=== PATIENT | female | born 1990 | race African-American/Black ===

== ENCOUNTER 2018-01-18 18:23 | Emergency (ER) | payer MEDICAID ==
[~2018-01-18] VITALS: Ht 167.6 cm; Wt 136.4 kg
[2018-01-18 18:29] VITALS: Ht 167.6 cm; Wt 136.4 kg
[2018-01-18] MEDS ORDERED: SUMATRIPTAN SUC25 MG PO (18:58)
[2018-01-18 19:42] VITALS: BP 145/77
== END 2018-01-18 19:41 | disposition home or self-care (01) ==
LOC: D.ER 18:23
DX: G43.909 Migraine, unspecified, not intractable, without status migrainosus (principal)

== ENCOUNTER 2018-03-29 15:19 | Emergency (ER) | payer MEDICAID ==
[~2018-03-29] VITALS: Ht 167.6 cm; Wt 145.1 kg
[~2018-03-29 15:19] MED LIST: SUMATRIPTAN SUC25 MG PO
[2018-03-29 15:29] VITALS: BP 144/88; Ht 167.6 cm; Wt 145.1 kg
[2018-03-29] MEDS ORDERED: ROBAXIN500 MG PO (16:30)
[2018-03-29] MEDS ORDERED: MEDROL DOSE PACK4 MG PO (16:30)
== END 2018-03-29 17:01 | disposition home or self-care (01) ==
LOC: D.ER 15:19
DX: T78.40XA Allergy, unspecified, initial encounter (principal); X58.XXXA Exposure to other specified factors, initial encounter; M54.5 Low back pain; F17.200 Nicotine dependence, unspecified, uncomplicated

== ENCOUNTER 2018-06-29 13:31 | Emergency (ER) | payer MEDICAID ==
[~2018-06-29] VITALS: Ht 167.6 cm; Wt 145.5 kg
[~2018-06-29 13:31] MED LIST changes: +MEDROL DOSE PACK4 MG PO; +ROBAXIN500 MG PO
[2018-06-29 13:41] VITALS: Ht 167.6 cm; Wt 145.5 kg
[2018-06-29] MEDS ORDERED: TESSALON PERLE100 MG PO (16:41)
[2018-06-29] MEDS ORDERED: MONODOX100 MG PO (16:41)
[2018-06-29] MEDS ORDERED: VENTOLIN HFA18 GM INH (16:41)
[2018-06-29 17:09] VITALS: BP 135/82
== END 2018-06-29 17:09 | disposition home or self-care (01) ==
LOC: D.ER 13:31
DX: J40 Bronchitis, not specified as acute or chronic (principal); J01.90 Acute sinusitis, unspecified; R05 Cough; R09.89 Other specified symptoms and signs involving the circulatory and respiratory systems; J02.9 Acute pharyngitis, unspecified; M79.18 Myalgia, other site; F17.200 Nicotine dependence, unspecified, uncomplicated

== ENCOUNTER 2018-07-03 22:13 | Emergency (ER) | payer MEDICAID ==
[~2018-07-03] VITALS: Ht 167.6 cm; Wt 145.5 kg
[~2018-07-03 22:13] MED LIST changes: +MONODOX100 MG PO; +TESSALON PERLE100 MG PO; +VENTOLIN HFA18 GM INH
[2018-07-03 22:20] VITALS: Ht 167.6 cm; Wt 145.5 kg
[2018-07-03] MEDS ORDERED: VENTOLIN HFA18 GM INH (23:06)
[2018-07-03] MEDS ORDERED: OMNICEF300 MG PO (23:06)
[2018-07-03] MEDS ORDERED: PHENERGAN DM SYR5 ML PO (23:06)
[2018-07-03] MEDS ORDERED: TAMIFLU75 MG PO (23:07)
[2018-07-03 23:51] VITALS: BP 146/82
== END 2018-07-03 23:52 | disposition home or self-care (01) ==
LOC: D.ER 22:13
DX: R50.9 Fever, unspecified (principal); M79.18 Myalgia, other site; H66.92 Otitis media, unspecified, left ear; R05 Cough; J02.9 Acute pharyngitis, unspecified; R07.9 Chest pain, unspecified

== ENCOUNTER 2018-12-28 09:11 | Emergency (ER) | payer OTHER ==
[~2018-12-28] VITALS: Ht 167.6 cm; Wt 134.1 kg
[~2018-12-28 09:11] MED LIST changes: +OMNICEF300 MG PO; +PHENERGAN DM SYR5 ML PO; +TAMIFLU75 MG PO
[2018-12-28 09:31] VITALS: BP 122/82; Ht 167.6 cm; Wt 134.1 kg
[2018-12-28] MEDS ORDERED: CYCLOBENZAPRINE10 MG PO (10:27)
[2018-12-28] MEDS ORDERED: IBUPROFEN800 MG PO (10:27)
== END 2018-12-28 11:12 | disposition home or self-care (01) ==
LOC: D.ER 09:11
DX: S39.012A Strain of muscle, fascia and tendon of lower back, initial encounter (principal); X50.0XXA Overexertion from strenuous movement or load, initial encounter; Y92.89 Other specified places as the place of occurrence of the external cause; M62.838 Other muscle spasm

== ENCOUNTER 2019-12-22 07:20 | Emergency (ER) | payer OTHER ==
[~2019-12-22] VITALS: Ht 167.6 cm; Wt 122.3 kg
[~2019-12-22 07:20] MED LIST changes: +CYCLOBENZAPRINE10 MG PO; +IBUPROFEN800 MG PO; +PEPCID AC20 MG PO
[2019-12-22 07:26] VITALS: Ht 167.6 cm; Wt 122.3 kg
[2019-12-22] MEDS ORDERED: ULTRAM50 MG PO (07:40)
[2019-12-22] MEDS ORDERED: NAPROSYN500 MG PO (07:40)
[2019-12-22 07:47] VITALS: BP 148/80
== END 2019-12-22 07:48 | disposition home or self-care (01) ==
LOC: D.ER 07:20
DX: G89.29 Other chronic pain (principal); M54.9 Dorsalgia, unspecified; M54.2 Cervicalgia

== ENCOUNTER 2020-01-12 17:16 | Day surgery (SDC) | payer OTHER ==
[~2020-01-12] VITALS: Ht 167.6 cm; Wt 117.9 kg
[~2020-01-12 17:16] MED LIST changes: +NAPROSYN500 MG PO; +ULTRAM50 MG PO
[2020-01-12 18:03] LABS: HCG URINE NEGATIVE (NEGATIVE)
[2020-01-12 18:05] LABS: BILIRUBIN NEGATIVE (NEGATIVE); GLUCOSE NEGATIVE (NEGATIVE); KETONE NEGATIVE (NEGATIVE); NITRITE NEGATIVE (NEGATIVE); UROBILINOGEN NORMAL (NORMAL)
[2020-01-12 18:06] LABS: BACTERIA FEW /hpf (NEGATIVE); EPITHELIAL CELLS OCC /hpf (0-5); WHITE CELLS - URINE 0-5 /hpf (NEGATIVE)
[2020-01-12 18:29] LABS: BASOPHILS 0.4 % (0-2); EOSINOPHILS 1.1 % (0-7); HEMATOCRIT 32.7 % (36.0-48.0); HEMOGLOBIN 9.8 g/dL (12-16); LYMPHOCYTES 40.7 % (15-50); MCH 21.9 pg (26.0-34.0); MCV 73.2 fL (80.0-100.0); MEAN PLATELET VOLUME 9.6 fL (7.4-10.4); MONOCYTES 10.1 % (2-11); NEUTROPHILS 47.7 % (40-80); PLATELET COUNT 314 10x3/uL (130-400); RBC 4.47 10x6/uL (4.00-5.40); WBC 4.7 10x3/uL (4.8-10.8)
[2020-01-12 18:45] LABS: CALC OSMOLALITY 274 mosm/kg (275-300); CALCIUM 9.1 mg/dL (8.5-10.1); CARBON DIOXIDE 28.6 mmol/L (21.0-32.0); CHLORIDE - SERUM 104 mmol/L (98-107); CREATININE - SERUM 0.8 mg/dL (0.6-1.3); GLUCOSE 82 mg/dL (74-106); POTASSIUM - SERUM 3.2 mmol/L (3.5-5.1); SODIUM 139 mmol/L (136-145); UREA NITROGEN 7 mg/dL (7-18); eGFR NON AFRICAN AMERICAN 89 mL/min (90-120)
[2020-01-12 18:54] LABS: ALBUMIN 3.6 g/dL (3.4-5.0); ALKALINE PHOSPHATASE 234 U/L (30-120); ALT (SGPT) 207 U/L (10-68); AMYLASE - SERUM 74 U/L (25-115); BILIRUBIN - TOTAL 0.26 mg/dL (0.2-1.3); LIPASE 127 U/L (73-393); PROTEIN - SERUM 8.3 g/dL (6.4-8.2); TROPONIN-I < 0.017 ng/mL (0.000-0.060)
--- NOTE | 2020-01-12 22:00 | NUR ---
PT ARRIVED ON UNIT VIA WHEELCHAIR ESCORTED BY ER NURSE. ORIENTED TO ROOM AND CALL LIGHT. RE-STARTED IV FLUIDS AND ANTIBIOTICS.
--- NOTE | 2020-01-12 22:15 | NUR ---
GAVE PT SANDWICH TRAY AND APPLE JUICE. SHE ALSO HAD FAST FOOD DELIVERED BY FAMILY MEMBER.
[2020-01-12] MEDS ORDERED: LISINOPRIL-HCT1 EAC7 PO (22:17)
[2020-01-12 22:22] VITALS: BP 131/60; BMI 42.0
--- NOTE | 2020-01-12 22:28 | NUR ---
GAVE MORPHINE 4 MG IVP PER REQUEST FOR PAIN. WILL MONITOR FOR EFFECTIVENESS.
--- NOTE | 2020-01-12 23:12 | NUR ---
ADMISSION ASSESSMENT AND HISTORY COMPLETE. MED REC COMPLETE.
--- NOTE | 2020-01-13 | NUR ---
NPO STATUS BEGINS NOW. BEDSIDE TABLE CLEARED OF ALL CUPS AND FOOD.
[2020-01-13 04:00] VITALS: BP 109/52
--- NOTE | 2020-01-13 04:37 | NUR ---
HIBACLEDANIELLE SHOWER PERFORMED IN PREPARATION FOR POSSIBLE SURGERY THIS AM.
--- NOTE | 2020-01-13 07:06 | NUR ---
PT K+ IS 3.2 WILL ADD PROTOCOL. PT IS SITTING UP IN BED TALKING ON PHONE, STATES SHE FEELS BETTER AFTER ADMINISTRATION OF PAIN MEDICATION AT 0500. NO NEEDS AT THIS TIME, PENDING 'S ORDERS FOR PROCEDURE
[2020-01-13 08:25] VITALS: BP 117/65
[2020-01-13 09:08] LABS: BASOPHILS 0.3 % (0-2); EOSINOPHILS 1.8 % (0-7); HEMATOCRIT 28.4 % (36.0-48.0); HEMOGLOBIN 8.4 g/dL (12-16); LYMPHOCYTES 42.2 % (15-50); MCH 21.6 pg (26.0-34.0); MCHC 29.6 g/dL (31.0-37.0); MEAN PLATELET VOLUME 9.8 fL (7.4-10.4); MONOCYTES 8.2 % (2-11); NEUTROPHILS 47.5 % (40-80); PLATELET COUNT 260 10x3/uL (130-400); RBC 3.89 10x6/uL (4.00-5.40); RDW 17.9 % (11.5-14.5); WBC 3.8 10x3/uL (4.8-10.8)
[2020-01-13 09:17] LABS: CALC OSMOLALITY 274 mosm/kg (275-300); CALCIUM 8.3 mg/dL (8.5-10.1); CARBON DIOXIDE 27.5 mmol/L (21.0-32.0); CHLORIDE - SERUM 107 mmol/L (98-107); CREATININE - SERUM 0.8 mg/dL (0.6-1.3); GLUCOSE 81 mg/dL (74-106); POTASSIUM - SERUM 3.6 mmol/L (3.5-5.1); SODIUM 140 mmol/L (136-145); UREA NITROGEN 5 mg/dL (7-18); eGFR NON AFRICAN AMERICAN 89 mL/min (90-120)
[2020-01-13 09:22] LABS: INR 1.01 (0.85-1.17); PROTIME 13.2 SECONDS (11.6-15.0)
[2020-01-13 09:23] LABS: ALBUMIN 2.8 g/dL (3.4-5.0); ALKALINE PHOSPHATASE 178 U/L (30-120); ALT (SGPT) 142 U/L (10-68); AMYLASE - SERUM 58 U/L (25-115); APTT 31.6 SECONDS (22.8-39.4); BILIRUBIN - TOTAL 0.21 mg/dL (0.2-1.3); LIPASE 106 U/L (73-393); PROTEIN - SERUM 6.7 g/dL (6.4-8.2)
--- NOTE | 2020-01-13 10:22 | NUR ---
PATIENT HAS SUBDERMAL IMPLANT ON FACE NON REMOVABLE. WAS MADE AWARE OF RISK OF BURN DUE TO CAUTERY DEVICE.
[2020-01-13 10:48] VITALS: Ht 167.6 cm; Wt 117.9 kg
[2020-01-13 11:22] VITALS: BP 126/89
--- NOTE | 2020-01-13 11:42 | NUR ---
RECEIVED PT BACK FROM SURGERY, PT IS ASLEEP AND EASY TO WAKE. MOTHER AT BEDSIDE. PT STATES THROAT IS SORE, GAVE PT ICE CHIPS FOR NOW, VSS, NO OTHER NEEDS AT THIS TIME. CONTINUE WITH PLAN OF CARE
--- NOTE | 2020-01-13 12:10 | NUR ---
PT CL ON, MOTHER STATES PT NEEDS PAIN MEDICATION PT STATES PAIN IS ABOUT AN 8, ADMINISTERED PRN PAIN MEDICATION IV. NO OTHER NEEDS PT NC REMOVED O2 SAT AT 98-100 ON 2L, WEANED OFF AND PT O2 IS 96 RA. CONTINUE WITH PLAN OF CARE
[2020-01-13] MEDS ORDERED: HYDROCODON-ACE1 EAC7 PO (12:53)
--- NOTE | 2020-01-13 13:07 | NUR ---
ASSISTED PT TO RESTROOM, PT WAS ABLE TO AMBULATE TO RESTROOM WITH MINIMAL ASSIST. MOM ENCOURAGED PT TO USE PILLOW BRACED AGAINST ABD AREA WHEN GETTING UP AND DOWN TO ASSIST WITH SORENESS. PT SITTING UP IN BED AND EATING, NO NEEDS VOICED, CONTINUE WITH PLAN OF CARE
--- NOTE | 2020-01-13 15:59 | NUR ---
PT ON CL, STATES ABD IS SORE AND PAIN IS AT ABOUT A 9, ADMINISTERED PRN PAIN MEDICATION PO. PT STATED SHE IS READY TO GO HOME AND INQUIRED ON WHEN SHE CAN LEAVE. EXPLAINED TO PT THAT I HAVE HER PAPERWORK, WILL GO OVER INMSTRUCTIONS WITH HER AND REMOVE IV. FRIEND AT [facility], ALL QUESTIONS ANSWERED. PT WILL BE TAKEN DOWN VIA W/C BY [employer] SUPERVISOR
== END 2020-01-13 17:15 | disposition home or self-care (01) ==
LOC: D.MS 17:16 → D.ER 17:16 → D.MS 21:23 → EDSTATUS 21:23 → D.MS 01-13 17:15
PROVIDERS: Family Medicine; Surgery; ATTEND Family Medicine
DX: K81.0 Acute cholecystitis (principal); R10.13 Epigastric pain; R79.89 Other specified abnormal findings of blood chemistry

== ENCOUNTER 2020-03-22 19:48 | Emergency (ER) | payer OTHER ==
[~2020-03-22] VITALS: Ht 167.6 cm; Wt 109.1 kg
[~2020-03-22 19:48] MED LIST changes: +HYDROCODON-ACE1 EAC7 PO; +LISINOPRIL-HCT1 EAC7 PO
[2020-03-22 19:53] VITALS: Ht 167.6 cm; Wt 109.1 kg
[2020-03-22] MEDS ORDERED: ULTRAM50 MG PO (19:56)
[2020-03-22] MEDS ORDERED: MEDROL DOSE PACK4 MG PO (20:17)
[2020-03-22] MEDS ORDERED: ZANAFLEX4 MG PO (20:17)
[2020-03-22] MEDS ORDERED: VOLTAREN75 MG PO (20:17)
[2020-03-22 20:47] VITALS: BP 134/81
== END 2020-03-22 20:47 | disposition home or self-care (01) ==
LOC: D.ER 19:48
DX: M54.2 Cervicalgia (principal); M54.9 Dorsalgia, unspecified; G89.29 Other chronic pain

== ENCOUNTER 2020-04-11 05:29 | Emergency (ER) | payer OTHER ==
[~2020-04-11] VITALS: Ht 167.6 cm; Wt 111.8 kg
[~2020-04-11 05:29] MED LIST changes: +VOLTAREN75 MG PO; +ZANAFLEX4 MG PO
[2020-04-11 05:47] VITALS: Ht 167.6 cm; Wt 111.8 kg
[2020-04-11] MEDS ORDERED: SOMA350 MG PO (05:49)
[2020-04-11] MEDS ORDERED: ZANAFLEX4 MG PO (06:53)
[2020-04-11] MEDS ORDERED: VOLTAREN75 MG PO (06:53)
[2020-04-11 07:08] VITALS: BP 132/76
== END 2020-04-11 07:08 | disposition home or self-care (01) ==
LOC: D.ER 05:29
DX: M54.5 Low back pain (principal); G89.29 Other chronic pain; I10 Essential (primary) hypertension; Z72.0 Tobacco use